=== PATIENT | female | born 1940 | race Caucasian/White ===

== ENCOUNTER → 2023-06-12 13:56 | Outpatient (REF) | payer MEDICARE, OTHER, SELFPAY | LOC: EMG 13:56 | PROVIDERS: ATTENDING PHYSICIAN Internal Medicine | DX: M54.16 Radiculopathy, lumbar region (principal); R20.0 Anesthesia of skin | CPT/HCPCS: 95886; 95909 ==

== ENCOUNTER 2023-09-14 14:16 | Emergency (ER) | payer MEDICARE, OTHER, SELFPAY ==
[2023-09-14 14:26] VITALS: BP 152/70
--- NOTE | 2023-09-14 16:13 | ED.GENMED ---
History of Present Illness
General
Chief Complaint: Musculo-Skeletal Complaint
Time Seen by Provider: 09/14/23 14:39
History of Present Illness
History of Present Illness:
83-year-old female presents the emergency department for evaluation of right wrist pain after falling 3 days ago. She is able to move the wrist but has significant pain. Is taken Tylenol without relief, also has skin tears to the right upper arm
and right knee
Past History
Past History
ED Past Medical History: GERD, HTN and Other (Chronic back pain)
ED Past Surgical History: Bowel resection, Gynecological and Orthopedic (Spinal surgery with hardware 2018, left hip replacement)
Social History
Tobacco: Non-smoker
Alcohol: None
Personal:
Living: with family
Review of Systems
Review of Systems
Allergies reviewed?: Yes
All Other Systems: ROS reviewed and negative except as documented in HPI and ROS
Phy Exam
Physical Exam
Physical Exam:
GEN: Well appearing, NAD, WDWN
HEENT: Oral mucosa moist, no scleral icterus
Cardiac: Regular rate
Lung: No respiratory distress, no tachypnea
MSK: Mild swelling of the right wrist with diffuse ecchymosis, no open wounds. Skin tear to the right upper arm as well as the right knee, well-approximated
Skin: Good color, no pallor or jaundice, no rashes
Neuro: AO x3, moves all extremities freely
Psych: Calm, cooperative
Course
Orders/Labs/Results
Orders:
Orders
09/14/23 14:55
CR Wrist - Right Min 3 Views Urgent
Comment:
Reason For Exam: fall
Vital Signs
Initial and Last Documented VS:
Initial Vital Signs
Temp Pulse Resp BP Pulse Ox
98.1 F 98 18 152/70 97
09/14/23 14:26 09/14/23 14:26 09/14/23 14:26 09/14/23 14:26 09/14/23 14:26
Last Documented Vital Signs
Temp Pulse Resp BP Pulse Ox
98.1 F 98 18 152/70 97
09/14/23 14:26 09/14/23 14:26 09/14/23 14:26 09/14/23 14:26 09/14/23 14:26
MDM/Problems Addressed
MDM/Problems Addressed:
X-rays of the right wrist independently interpreted by me show degenerative changes but no acute osseous abnormalities. Discussed supportive care, wounds on the arm and leg were redressed
*Critical Care Note
Total Time (30-74mins, 75-104mins- exclusive of procedures): Not Applicable
ED Attending Note
-
Portions of this chart may have been created with voice recognition software.� Occasional wrong word or��sound alike� substitutions may have occurred due to the inherent limitations of voice recognition software.
Discharge Plan
Departure
Patient Disposition: Home (Routine Discharge)
Date of Disposition: 09/14/23
Time of Disposition: 16:13
Patient with high blood pressure during this ER visit?: No
Discharge Problem:
Right wrist sprain
Instructions: Wrist Sprain ED
Prescriptions:
No Action
medroxyprogesterone 10 MG tablet
10 mg PO DAILY@1200
famotidine 40 MG tablet
40 mg PO HS
cyanocobalamin (vitamin B-12) 1,000 MCG tablet
1,000 mcg PO DAILY
amlodipine 2.5 MG tablet
2.5 mg PO QPM
allopurinol 100 MG tablet
100 mg PO DAILY@1200
calcium carbonate 500 MG tablet
500 mg PO DAILY
conjugated estrogens [Premarin] 0.625 MG tablet
0.625 mg PO DAILY@1200
hydrochlorothiazide 25 MG tablet
25 mg PO DAILY
ramipril 5 MG capsule
5 mg PO QPM
lansoprazole 30 MG tablet,disintegrat, delay rel
30 mg PO BID
cholecalciferol (vitamin D3) 1,000 UNITS tablet
2,000 units PO DAILY
mesalamine [Lialda] 1.2 GM tablet,delayed release (DR/EC)
1.2 g PO BID
coenzyme [id number] E [Co Q-10 (with Vit E)] 1 EACH capsule
1 ea PO DAILY
turmeric root extract 500 MG capsule
1,000 mg PO DAILY
Dextrin [Easy Fiber] 477 GM Powder
2 tsp PO BID
Patient Comments:
Weeks ago per patient.
mupirocin 1 APPLIC ointment
1 applic topical BID Qty: 1 0RF
Patient Comments:
Patient started this treatment on 07/09/21 in the evening. Patient administered this medication today 07/14/21 @05:00.
oxycodone 5 MG tablet
5 mg PO Q6HPRN PRN (Reason: moderate-severe pain) Qty: 30 0RF
Rx Instructions:
1 tab moderate pain or 2 if pain severe
Dx total joint replacement
ongoing therapy
tizanidine 2 MG tablet
2 mg PO HS Qty: 7 0RF
aspirin 325 MG tablet,delayed release (DR/EC)
325 mg PO DAILY Qty: 30 0RF
Rx Instructions:
one daily for 30 days to prevent blood clots
acetaminophen [Tylenol] 325 MG capsule
325 mg PO Q6H PRN (Reason: pain) Qty: 60 0RF
Rx Instructions:
1000mg 4 times a day
Do not exceed 4000mg in 24 hours
docusate sodium [Colace] 100 MG capsule
100 mg PO BID Qty: 60 0RF
sennosides [Senokot Extra Strength] 17.2 MG tablet
17.2 mg PO DAILY PRN (Reason: constipation) Qty: 60 0RF
Referrals:
Say Franklin MD [Family Provider] -
Interventions
Interventions:
*Risk Screen - Suicide Last Done: 09/14/23 14:27
*General Assessment Last Done: 09/14/23 14:27
*Neglect/Abuse Screening Last Done: 09/14/23 14:27
ED- Fall Risk Assessment Last Done: 09/14/23 16:19
*ED COVID-19 Vaccine History Last Done: 09/14/23 16:19
*Nursing Disposition Last Done: 09/14/23 16:19
ED-Musculoskeletal Assessment Last Done: 09/14/23 15:30
ED- Neurological Assessment Last Done: 09/14/23 15:30
ED-Skin Assessment Last Done: 09/14/23 15:30
Discharge Date and Time
Discharge Date/Time: 09/14/23 16:20
Print Language: ANDORRAN
== END 2023-09-14 16:20 | disposition home or self-care (01) ==
LOC: EMR 14:16
PROVIDERS: EMERGENCY PHYSICIAN Student in an Organized Health Care Education/Training Program; FAMILY PHYSICIAN Internal Medicine
DX: S63.501A Unspecified sprain of right wrist, initial encounter (principal); S41.111A Laceration without foreign body of right upper arm, initial encounter; S81.011A Laceration without foreign body, right knee, initial encounter; W19.XXXA Unspecified fall, initial encounter; K21.9 Gastro-esophageal reflux disease without esophagitis; I10 Essential (primary) hypertension; G89.29 Other chronic pain; M54.9 Dorsalgia, unspecified
CPT/HCPCS: 99283; 73110